=== PATIENT | male | born 1980 | race African-American/Black ===

== ENCOUNTER 2017-12-16 17:30 | Emergency (ER) | payer OTHER ==
[2017-12-16 17:44] VITALS: BP 118/57
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
[2017-12-16] MEDS ORDERED: NAPROXEN 250 MG TABLET PO ONE (18:31)
[2017-12-16] MEDS ORDERED: ACETAMINOPHEN 325 MG TABLET PO ONE (18:32)
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
== END 2017-12-16 18:49 | disposition home or self-care (01) ==
LOC: ER 17:30
DX: M54.5 Low back pain (principal); M54.2 Cervicalgia; V87.7XXA Person injured in collision between other specified motor vehicles (traffic), initial encounter; R40.2410 Glasgow coma scale score 13-15, unspecified time
CPT/HCPCS: 72110; 99284